=== PATIENT | male | born 1975 | race Caucasian/White ===

== ENCOUNTER 2020-06-17 23:12 | Emergency (ER) | payer BC, OTHER ==
[~2020-06-17 23:12] MED LIST: COZAAR 50MG TAB50 MG PO; GLUCOPHAGE500 MG PO
[2020-06-18 01:08] LABS: HEMOGLOBIN 14.6 gm/dl (14.0-17.5); RED BLOOD COUNT 4.71 M/UL (4.20-5.50); WHITE BLOOD COUNT 12.8 K/UL (4.5-11.0)
[2020-06-18 01:23] LABS: BUN/CREATININE RATIO 16 (0-10)
[2020-06-18] MEDS ORDERED: FLOMAX 0.4 MG0.4 MG PO (03:37)
[2020-06-18] MEDS ORDERED: ZOFRAN ODT 4 MG4 MG PO (03:37)
[2020-06-18] MEDS ORDERED: TORADOL 10 MG T10 MG PO (03:37)
== END 2020-06-18 03:56 | disposition home or self-care (01) ==
LOC: ER1 23:12
PROVIDERS: Physician Assistant
DX: N13.2 Hydronephrosis with renal and ureteral calculous obstruction (principal); E87.6 Hypokalemia; I25.2 Old myocardial infarction; I25.10 Atherosclerotic heart disease of native coronary artery without angina pectoris; Z95.1 Presence of aortocoronary bypass graft
CPT/HCPCS: 80053; 81001; 83605; 83690; 85025; 93005; 96374; 96375; 96376; 99284; J1885; J2270; J2405; Q9967

== ENCOUNTER 2021-01-13 17:00 | Emergency (ER) | payer BC ==
[~2021-01-13] VITALS: Ht 188 cm; Wt 121.6 kg
[~2021-01-13 17:00] MED LIST changes: +FLOMAX 0.4 MG0.4 MG PO; +TORADOL 10 MG T10 MG PO; +ZOFRAN ODT 4 MG4 MG PO
[2021-01-13] MEDS ORDERED: MUCINEX1200 MG PO (20:48)
== END 2021-01-13 21:00 | disposition home or self-care (01) ==
LOC: ER1 17:00
DX: Z23 Encounter for immunization (principal); U07.1 COVID-19; I25.10 Atherosclerotic heart disease of native coronary artery without angina pectoris; I10 Essential (primary) hypertension; Z95.1 Presence of aortocoronary bypass graft
CPT/HCPCS: 99283; M0243

== ENCOUNTER → 2021-03-20 | Outpatient (CLI) | payer BC ==
[~2021-03-20] MED LIST changes: +MUCINEX1200 MG PO
== END ==
LOC: RAD 12:02
DX: L97.529 Non-pressure chronic ulcer of other part of left foot with unspecified severity (principal)
CPT/HCPCS: 73660